=== PATIENT | female | born 1950 | race Caucasian/White ===

== ENCOUNTER 2017-07-24 23:50 | Emergency (ER) | payer MEDICARE, BC ==
[~2017-07-24] VITALS: Ht 157.5 cm; Wt 53.1 kg
--- NOTE | 2017-07-25 00:30 | NUR ---
PT IN BED. PT RESTING QUIETLY WITH EYES CLOSED. MD BAUER CONDUCTED BY MD STUART. [employer] SPECIALIST HAS BEEN CONTACTED, PER MD ORDERS, TO SCAN RIGHT LEG. US TECH IN ROUTE.
--- NOTE | 2017-07-25 00:59 | NUR ---
US TECH AT BEDSIDE.
--- NOTE | 2017-07-25 01:11 | NUR ---
DVT RULED OUT. MD STUART AT BEDSIDE DISCUSSING POSSIBLE TX OPTIONS.
[2017-07-25] MEDS ORDERED: CEPHALEXIN MONOHYDRATE 500 MG CAPSULE PO ONE (01:15)
[2017-07-25] MEDS ORDERED: SULFAMETH/TRIMETH 800/160 MG TABLET PO ONE (01:15)
[2017-07-25] MEDS ORDERED: CEPHALEXIN MONOHYDRATE 500 MG CAPSULE ONE (01:20)
[2017-07-25] MEDS ORDERED: SULFAMETH/TRIMETH 800/160 MG TABLET ONE (01:20)
--- NOTE | 2017-07-25 01:24 | NUR ---
Patient discharged to home in stable conditon. Written and verbal after care instructions given. Patient verbalizes understanding of instructions. Patient able to ambulate unassisted with steady gait. Patient left with all personal belonings.
[2017-07-25 01:26] VITALS: BP 118/72
== END 2017-07-25 01:25 | disposition home or self-care (01) ==
LOC: ER 07-25 00:01
DX: L03.115 Cellulitis of right lower limb (principal); I10 Essential (primary) hypertension; F17.210 Nicotine dependence, cigarettes, uncomplicated
CPT/HCPCS: A4663

== ENCOUNTER 2017-07-30 18:47 | Emergency (ER) | payer MEDICARE, BC ==
[~2017-07-30] VITALS: Ht 157.5 cm; Wt 53.1 kg
[2017-07-30] MEDS ORDERED: SULF1TAB48 PO (18:59)
[2017-07-30] MEDS ORDERED: SIMV40TA5 PO (18:59)
[2017-07-30] MEDS ORDERED: ESCI20TA PO (18:59)
[2017-07-30] MEDS ORDERED: AMLO10TA4 PO (18:59)
[2017-07-30] MEDS ORDERED: METO-356 PO (18:59)
[2017-07-30] MEDS ORDERED: CLON0.2T PO (18:59)
[2017-07-30] MEDS ORDERED: CEPH-570 PO (18:59)
--- NOTE | 2017-07-30 19:04 | NUR ---
DR JONES AT BEDSIDE FOR EVAL. HANDOFF REPORT GIVEN TO ED TAFOYA
[2017-07-30] MEDS ORDERED: HYDROMORPHONE 1 MG/1 ML DISP.SYRIN IV ONE (19:15)
[2017-07-30] MEDS ORDERED: ONDANSETRON 4 MG/2 ML VIAL IV ONE (19:15)
--- NOTE | 2017-07-30 19:15 | NUR ---
REPORT RECEIVED FROM MICHELET ROMERO. PT IN BED. MD JONES AT BEDSIDE CONDUCTING MD BAUER. PT'S SPOUSE ALSO AT BEDSIDE. PT PRESENTED TO ED S/P FALL X 3 DAYS. PT REPORTS BEING AT AMBULATE SHORT DISTANCES TO BATHROOM AFTER FALL PRIOR TO ED VISIT. PT ALSO REPORTS USING SON'S CRUTCHES TO AMBULATE FALL FALL PRIOR TO ED VISIT.
--- NOTE | 2017-07-30 19:40 | NUR ---
PT IN ROUTE TO CT IN [facility] WITH TRANSPORTER. [employer] TECH HAS BEEN CALLED TO SCAN LEGS TO R/U THE EXISTENCE OF DVT. PT HAS REDNESS AND SWELLING IN LEGS DUE TO PREVIOUS CELLULITIS INFECTION. FOR THE PREVIOUS INFECTION PT CURRENTLY REPORT TAKING BACTRIM AND KEFLEX.
[2017-07-30 19:49] LABS: BASOPHILS # (AUTO) 0.1 K/uL (0.0-8.0); BASOPHILS % (AUTO) 0.7 % (0.0-2.0); EOSINOPHILS # (AUTO) 0.2 K/uL (0.0-0.7); EOSINOPHILS % (AUTO) 2.1 % (0.0-7.0); HEMATOCRIT 29.9 % (31.2-41.9); HEMOGLOBIN 9.9 g/dL (10.9-14.3); LYMPHOCYTES # (AUTO) 1.1 K/uL (20.0-40.0); LYMPHOCYTES % (AUTO) 13.1 % (20.5-51.5); MEAN CORPUSCULAR HEMOGLOBIN 28.1 uug (24.7-32.8); MEAN CORPUSCULAR HGB CONC 33 g/dL (32.3-35.6); MEAN CORPUSCULAR VOLUME 84.7 fL (75.5-95.3); MONOCYTES # (AUTO) 0.7 K/uL (2.0-10.0); MONOCYTES % (AUTO) 8.8 % (0.0-11.0); NEUTROPHILS # (AUTO) 6.1 K/uL (1.8-8.9); NEUTROPHILS % (AUTO) 75.3 % (38.5-71.5); PLATELET COUNT (AUTO) 290 K/uL (179-408); RED BLOOD CELL COUNT(AUTO) 3.53 MIL/uL (3.63-4.92); WHITE BLOOD COUNT (AUTO) 8.1 K/uL (3.8-11.8)
[2017-07-30] MEDS ORDERED: HYDROMORPHONE 2 MG/1 ML DISP.SYRIN ONE (19:49)
[2017-07-30] MEDS ORDERED: ONDANSETRON 4 MG/2 ML VIAL ONE (19:49)
[2017-07-30 19:55] LABS: CREATININE 2.2 mg/dL (0.6-1.3); POTASSIUM 3.4 mmol/L (3.5-5.1)
--- NOTE | 2017-07-30 19:57 | NUR ---
PT BACK FROM CT.
[2017-07-30 20:00] LABS: BILIRUBIN,DIRECT 0.1 mg/dL (0.0-0.2); BILIRUBIN,TOTAL 0.2 mg/dL (0.2-1.0); TOTAL PROTEIN, SERUM 7.7 g/dL (6.4-8.2)
[2017-07-30 20:04] LABS: ETHANOL < 3 MG/DL (0-0)
--- NOTE | 2017-07-30 20:50 | NUR ---
PT IN ROUTE TO CT IN [facility] WITH TRANSPORTER FOR SCAN OF HEAD AND NECK.
--- NOTE | 2017-07-30 21:18 | NUR ---
MD JONES AT BEDSIDE EXPLAINING TX OPTIONS WITH PT AND PT'S FAMILY MEMBERS
--- NOTE | 2017-07-30 21:50 | NUR ---
Patient discharged to home in stable conditon. Written and verbal after care instructions given. Patient verbalizes understanding of instructions. Patient left in wheelchair pushed by spouse. Peripheral IV was removed. Patient left with all personal belongings.
[2017-07-30 21:52] VITALS: BP 142/68
== END 2017-07-30 21:50 | disposition home or self-care (01) ==
LOC: ER 18:48
DX: S32.592A Other specified fracture of left pubis, initial encounter for closed fracture (principal); S32.512A Fracture of superior rim of left pubis, initial encounter for closed fracture; S09.90XA Unspecified injury of head, initial encounter; I10 Essential (primary) hypertension; G89.29 Other chronic pain; I25.10 Atherosclerotic heart disease of native coronary artery without angina pectoris; F17.210 Nicotine dependence, cigarettes, uncomplicated; Z79.2 Long term (current) use of antibiotics; Z79.899 Other long term (current) drug therapy; Z95.1 Presence of aortocoronary bypass graft; W18.49XA Other slipping, tripping and stumbling without falling, initial encounter; Y93.89 Activity, other specified; Y92.89 Other specified places as the place of occurrence of the external cause; Y99.8 Other external cause status
CPT/HCPCS: 36415; 70030-TC; 70450; 71045; 72125; 85025; 85730; 93005; A4663; G0480; J1170; J2405; J7030